=== PATIENT | male | born 1935 | race Caucasian/White ===

== ENCOUNTER 2017-02-15 15:51 | Emergency (ER) | payer OTHER, MEDICARE ==
[2017-02-15] MEDS: Sodium Chloride 0.9% 10 ML Syringe FLUSH PRN ×2 (16:31→16:40)
[2017-02-15] MEDS ORDERED: Aspirin 81 MG Tab.Chew PO ONE (16:33)
[2017-02-15] MEDS ORDERED: Ondansetron 4 MG/2 ML SDV IVPUSH ONE (16:38)
--- NOTE | 2017-02-15 16:38 | EDM.PDOC ---
ED HISTORY OF PRESENT ILLNESS - General Chief Complaint: Chest Pain Stated Complaint: CHEST PAIN DIABETIC Time Seen by Provider: 02/15/17 16:27 Source of Information: Reports: Patient History Limitations: Reports: No limitations - History of Present Illness INITIAL COMMENTS - FREE TEXT/NARRATIVE: Presents for evaluation and treatment of chest pain. Patient reports that the chest pain woke him from sleep last night. She reports associated symptoms of shortness of breath. He denies any current chest pain. Patient reports that he was feeling nauseous and vomited this morning. He was feeling diaphoretic. Patient reports that he took 2 sublingual nitroglycerins prior to arrival in the ER, one this morning and one about two hour prior to arrival in the ER. Again, he is denying current chest pain. Current symptoms include nausea, vomiting, lightheadedness, weakness and dizziness. He states he is having finding his balance. He denies any syncopal episodes. The patient is a diabetic. Patient also reports a past cardiac history of stents and congestive heart failure. He denies any A. fib. Patient resides in [place]. Patient is visiting [place]. He has a daughter at [facility] in [place] who is having triple bypass surgery. - Related Data Allergies/ADRs: Allergies Allergy/AdvReac Type Severity Reaction Status Date / Time No Known Allergies Allergy Verified 02/15/17 16:01 Home Meds: Home Meds Aspirin [Ecotrin] 81 mg PO BID 02/15/17 [History] Calcium Carbonate [Calcium] 500 mg PO DAILY 02/15/17 [History] Glimepiride [Amaryl] 4 mg PO DAILY 02/15/17 [History] Insulin Glarg,Human.Rec.Analog [Lantus] 40 units SQ DAILY 02/15/17 [History] Insulin Lispro [HumaLOG] 14 units SQ DAILY 02/15/17 [History] Latanoprost [Xalatan 0.005% Ophth Soln] 1 drop EYEBOTH BID 02/15/17 [History] Levothyroxine [Synthroid] 50 mcg PO DAILY 02/15/17 [History] Losartan/Hydrochlorothiazide [Losartan-HCTZ 50-12.5 MG] 1 tab PO BID 02/15/17 [ History] Multivitamin [Multi-Day Vitamins] 1 tab PO DAILY 02/15/17 [History] [place]-3 Fatty Acids [Fish Oil] 300 mg PO BID 02/15/17 [History] Simvastatin [Zocor] 40 mg PO DAILY 02/15/17 [History] amLODIPine Besylate [Norvasc] 5 mg PO BID 02/15/17 [History] Past Medical History Cardiovascular History: Reports: Heart Failure, Hypertension, SOB on exertion, Stents Musculoskeletal History: Reports: Arthritis Endocrine/Metabolic History: Reports: Diabetes, type I Social & Family History - Tobacco Use Smoking Status *Q: Former Smoker ED ROS GENERAL - Review of Systems Review Of Systems: See Below Constitutional: Reports: weakness, diaphoresis Respiratory: Reports: Shortness of Breath Cardiovascular: Reports: Chest pain GI/Abdominal: Reports: Nausea, Vomiting (x1 today) Neurological: Denies: Syncope ED EXAM, GENERAL - Physical Exam Exam: See Below Exam Limited By: No limitations General Appearance: alert, WD/WN, no apparent distress, obese Respiratory/Chest: no respiratory distress, lungs clear, normal breath sounds Cardiovascular: normal peripheral pulses, systolic murmur (grade 2 systolic heart murmur), irregularly irregular GI/Abdominal: soft, non tender Neurological: alert, oriented, normal cognition Psychiatric: normal affect, normal mood Skin Exam: Warm, Dry EKG INTERPRETATION EKG Date: 02/15/17 Time: 16:00 Rhythm: a-fib Rate (beats/min): 84 [place]: normal P-wave: variable (1 p wave present) QRS: normal ST-T: normal QT: normal Comparison: NA - no prior EKG EKG Interpretation Comments: A.fib with a rate of 84 No acute ischemic changes. Course - Vital Signs Last Recorded V/S: Last Vital Signs Temp 36.7 C 02/15/17 16:01 Pulse 69 02/15/17 20:00 Resp 18 02/15/17 20:00 BP 102/50 L 02/15/17 20:00 Pulse Ox 91 L 02/15/17 20:00 - Orders/Labs/Meds Orders: Active Orders 24 hr Category Date Time Status Cardiac Monitoring [RC] . DIRECTED Care 02/15/17 16:33 Active EKG 12 Lead [EKG Documentation Completion] [RC] STAT Care 02/15/17 16:24 Active Peripheral IV Care [RC] . DIRECTED Care 02/15/17 16:24 Active Chest 1V Frontal [CR] Stat Exams 03/24/17 16:32 Taken Peripheral IV Insertion Adult [OM.PC] Routine Oth 02/15/17 16:24 Ordered Labs: Laboratory Tests 02/15/17 02/15/17 02/15/17 Range/Units 16:03 16:10 16:10 WBC 11.98 H (4.23-9.07) K/mm3 RBC 5.60 (4.63-6.08) M/mm3 Hgb 16.1 (13.7-17.5) gm/L Hct 47.9 (40.1-51.0) % MCV 85.5 (79.0-92.2) fl MCH 28.8 (25.7-32.2) pg MCHC 33.6 (32.2-35.5) g/dl RDW Std Deviation 39.8 (35.1-43.9) fL Plt Count 209 (163-337) K/mm3 MPV 10.5 (9.4-12.3) fl Neut % (Auto) 88.1 H (34.0-67.9) % Lymph % (Auto) 6.0 L (21.8-53.1) % [place] % (Auto) 5.4 (5.3-12.2) % Eos % (Auto) 0.1 L (0.8-7.0) Baso % (Auto) 0.1 (0.1-1.2) % Neut # (Auto) 10.55 H (1.78-5.38) K/mm3 Lymph # (Auto) 0.72 L (1.32-3.57) K/mm3 [place] # (Auto) 0.65 (0.30-0.82) K/mm3 Eos # (Auto) 0.01 L (0.04-0.54) K/mm3 Baso # (Auto) 0.01 (0.01-0.08) K/mm3 Manual Slide Review Normal smear PT (8.0-13.0) SECONDS INR APTT (22-36) SECONDS D-Dimer, Quantitative (0.19-0.59) mg/L Sodium 136 (136-145) mEq/L Potassium 4.1 (3.5-5.1) mEq/L Chloride 103 (98-107) mEq/L Carbon Dioxide 20 L (21-32) mEq/L Anion Gap 17.1 H (5-15) BUN 51 H (7-18) mg/dL Creatinine 2.2 H (0.7-1.3) mg/dL Est Cr Clr Drug Dosing 22.52 mL/min Estimated GFR (MDRD) 29 (>60) mL/min BUN/Creatinine Ratio 23.2 H (14-18) Glucose 236 H (83-115) mg/dL POC Glucose 223 H (83-110) mg/dL Calcium 8.1 L (8.5-10.1) mg/dL Total Bilirubin 1.6 H (0.2-1.0) mg/dL AST 18 (15-37) U/L ALT 29 (16-63) U/L Alkaline Phosphatase 69 (46-116) U/L CK-MB (CK-2) (0-3.6) ng/ml Troponin I 0.216 H* (0.00-0.056) ng/mL B-Natriuretic Peptide (0-100) pg/mL Total Protein 6.4 (6.4-8.2) g/dl Albumin 2.9 L (3.4-5.0) g/dl Globulin 3.5 gm/dL Albumin/Globulin Ratio 0.8 L (1-2) 02/15/17 02/15/17 02/15/17 Range/Units 16:10 16:10 16:10 WBC (4.23-9.07) K/mm3 RBC (4.63-6.08) M/mm3 Hgb (13.7-17.5) gm/L Hct (40.1-51.0) % MCV (79.0-92.2) fl MCH (25.7-32.2) pg MCHC (32.2-35.5) g/dl RDW Std Deviation (35.1-43.9) fL Plt Count (163-337) K/mm3 MPV (9.4-12.3) fl Neut % (Auto) (34.0-67.9) % Lymph % (Auto) (21.8-53.1) % [place] % (Auto) (5.3-12.2) % Eos % (Auto) (0.8-7.0) Baso % (Auto) (0.1-1.2) % Neut # (Auto) (1.78-5.38) K/mm3 Lymph # (Auto) (1.32-3.57) K/mm3 [place] # (Auto) (0.30-0.82) K/mm3 Eos # (Auto) (0.04-0.54) K/mm3 Baso # (Auto) (0.01-0.08) K/mm3 Manual Slide Review PT 11.6 (8.0-13.0) SECONDS INR 1.06 APTT 26 (22-36) SECONDS D-Dimer, Quantitative 1.80 H (0.19-0.59) mg/L Sodium (136-145) mEq/L Potassium (3.5-5.1) mEq/L Chloride (98-107) mEq/L Carbon Dioxide (21-32) mEq/L Anion Gap (5-15) BUN (7-18) mg/dL Creatinine (0.7-1.3) mg/dL Est Cr Clr Drug Dosing mL/min Estimated GFR (MDRD) (>60) mL/min BUN/Creatinine Ratio (14-18) Glucose (83-115) mg/dL POC Glucose (83-110) mg/dL Calcium (8.5-10.1) mg/dL Total Bilirubin (0.2-1.0) mg/dL AST (15-37) U/L ALT (16-63) U/L Alkaline Phosphatase (46-116) U/L CK-MB (CK-2) 2.0 (0-3.6) ng/ml Troponin I (0.00-0.056) ng/mL B-Natriuretic Peptide (0-100) pg/mL Total Protein (6.4-8.2) g/dl Albumin (3.4-5.0) g/dl Globulin gm/dL Albumin/Globulin Ratio (1-2) 02/15/17 Range/Units 16:10 WBC (4.23-9.07) K/mm3 RBC (4.63-6.08) M/mm3 Hgb (13.7-17.5) gm/L Hct (40.1-51.0) % MCV (79.0-92.2) fl MCH (25.7-32.2) pg MCHC (32.2-35.5) g/dl RDW Std Deviation (35.1-43.9) fL Plt Count (163-337) K/mm3 MPV (9.4-12.3) fl Neut % (Auto) (34.0-67.9) % Lymph % (Auto) (21.8-53.1) % [place] % (Auto) (5.3-12.2) % Eos % (Auto) (0.8-7.0) Baso % (Auto) (0.1-1.2) % Neut # (Auto) (1.78-5.38) K/mm3 Lymph # (Auto) (1.32-3.57) K/mm3 [place] # (Auto) (0.30-0.82) K/mm3 Eos # (Auto) (0.04-0.54) K/mm3 Baso # (Auto) (0.01-0.08) K/mm3 Manual Slide Review PT (8.0-13.0) SECONDS INR APTT (22-36) SECONDS D-Dimer, Quantitative (0.19-0.59) mg/L Sodium (136-145) mEq/L Potassium (3.5-5.1) mEq/L Chloride (98-107) mEq/L Carbon Dioxide (21-32) mEq/L Anion Gap (5-15) BUN (7-18) mg/dL Creatinine (0.7-1.3) mg/dL Est Cr Clr Drug Dosing mL/min Estimated GFR (MDRD) (>60) mL/min BUN/Creatinine Ratio (14-18) Glucose (83-115) mg/dL POC Glucose (83-110) mg/dL Calcium (8.5-10.1) mg/dL Total Bilirubin (0.2-1.0) mg/dL AST (15-37) U/L ALT (16-63) U/L Alkaline Phosphatase (46-116) U/L CK-MB (CK-2) (0-3.6) ng/ml Troponin I (0.00-0.056) ng/mL B-Natriuretic Peptide 954 H (0-100) pg/mL Total Protein (6.4-8.2) g/dl Albumin (3.4-5.0) g/dl Globulin gm/dL Albumin/Globulin Ratio (1-2) Meds: Medications Discontinued Medications Generic Name Dose Route Start Last Admin Trade Name Freq PRN Reason Stop Dose Admin Aspirin 324 mg 02/15/17 16:33 02/15/17 16:40 Aspirin PO 02/15/17 16:34 324 mg ONETIME ONE Administration Heparin Sodium (Porcine) 5,000 units 02/15/17 17:35 02/15/17 17:50 Heparin Sodium IVPUSH 02/15/17 17:36 5,000 units ONETIME ONE Administration Heparin Sodium/Dextrose 25,000 units in 500 mls @ 26.127 mls/hr 02/15/17 17: 45 02/15/17 18:05 Heparin 25,000 Units In D5w 500 Ml IV 20 mls/hr TITRATE VIRGILIO Administration Protocol 12 UNITS/KG/HR Metoprolol Tartrate 2 mg/ 52 mls @ 100 mls/hr 02/15/17 17:35 02/15/17 18:10 Sodium Chloride IV 02/15/17 18:07 Not Given ONETIME ONE Heparin Sodium/Dextrose Confirm 02/15/17 17:56 02/15/17 18:09 Heparin 25,000 Units In D5w 500 Ml Administered 02/15/17 17:57 Not Given Dose 25,000 units in 500 mls @ as directed .ROUTE .STK-MED ONE Metoprolol Tartrate 2 mg 02/15/17 18:10 02/15/17 18:12 Lopressor IVPUSH 02/15/17 18:11 1 mg ONETIME ONE Administration Ondansetron HCl 4 mg 02/15/17 16:38 02/15/17 16:43 Zofran IVPUSH 02/15/17 16:39 4 mg ONETIME ONE Administration Simvastatin 80 mg 02/15/17 17:43 02/15/17 18:22 Zocor PO 02/15/17 17:44 Not Given ONETIME ONE Simvastatin 80 mg 02/15/17 17:58 02/15/17 18:13 Zocor PO 02/15/17 17:59 80 mg STAT STA Administration Sodium Chloride 10 ml 02/15/17 16:24 02/15/17 16:40 Saline Flush FLUSH 10 ml ASDIRECTED PRN Administration Keep Vein Open - Radiology Interpretation Free Text/Narrative:: chest xray reviewed by myself and Dr. Helms shows no acute changes. Possible bilateral haziness - could be body habitus. - Re-Assessments/Exams Free Text/Narrative Re-Assessment/Exam: 02/15/17 18:18 The patient's labs have returned. White blood cell count is elevated at 11.9, hgb is 16.1 plts are 209. Sodium is 136, potassium is 4.1 chloride is 103. Anion gap is 17.1. Glucose is 236. Creatinine is 2.2 Troponin is elevated 0.216. BNP is elevated at 954. CK-MB is within normal limits at 2.0. D-dimer is elevated at 1.8. PT is 11.6 INR is 1.06. PTT is 26. Case discussed with Dr. Jarquin ER physician on with me at this time. Recommended heparin bolus followed by heparin drip per non-STEMI protocol. Recommended Zocor 80 mg. Recommended Lopressor 5 mg IV. Patient has received received a 325 aspirin. Patient is having a nonSTEMI and requires transfer to a high level of care. He asked that we go to [facility]. This is where his daughter is. Discussed the case with one-call at [place]. They do not have any telemetry beds. Spoke with Dr. Hgoan, hospitalist in [place], agrees to accept patient. We'll sent by ground ambulance to [facility] for further care. Will hold lopressor, as patient is to be transferred. Departure - Departure Time of Disposition: 20:34 Disposition: DC/Tfer to Acute Hospital 02 Reason for Transfer *Q: Other Condition: serious Clinical Impression: NSTEMI (non-ST elevated myocardial infarction) Referrals: PCP,Not In Area [Primary Care Provider] - Forms: ED Department Discharge Additional Instructions: Patient will be transported by ground ambulance to [facility]. Dr. Hogan accepting. Patient will be a direct admission. - My Orders Last 24 Hours: My Active Orders 02/15/17 16:24 EKG 12 Lead [EKG Documentation Completion] [RC] STAT Peripheral IV Care [RC] . DIRECTED Peripheral IV Insertion Adult [OM.PC] Routine 02/15/17 16:32 Chest 1V Frontal [CR] Stat 02/15/17 16:33 Cardiac Monitoring [RC] . DIRECTED - Assessment/Plan Last 24 Hours: My Active Orders 02/15/17 16:24 EKG 12 Lead [EKG Documentation Completion] [RC] STAT Peripheral IV Care [RC] . DIRECTED Peripheral IV Insertion Adult [OM.PC] Routine 02/15/17 16:32 Chest 1V Frontal [CR] Stat 02/15/17 16:33 Cardiac Monitoring [RC] . DIRECTED
[2017-02-15] MEDS ORDERED: METOPROLOL TARTRATE IV ONE (17:35)
[2017-02-15] MEDS ORDERED: Heparin Sodium 5,000 Units/ML Vial IVPUSH ONE (17:35)
[2017-02-15] MEDS ORDERED: SODIUM CHLORIDE 0.9% IV ONE (17:35)
[2017-02-15] MEDS ORDERED: Simvastatin 10 MG Tab PO ONE (17:43)
[2017-02-15] MEDS ORDERED: Heparin Sodium/D5W 25,000 UNITS/500 ML BAG IV SCH (17:45)
[2017-02-15] MEDS ORDERED: Heparin Sodium/D5W 25,000 UNITS/500 ML BAG ONE (17:56)
[2017-02-15] MEDS ORDERED: Simvastatin 40 MG Tab PO STA (17:58)
[2017-02-15] MEDS ORDERED: Metoprolol Tartrate 5 MG/5 ML SDV IVPUSH ONE (18:10)
[2017-02-15 20:51] VITALS: BP 102/50
--- NOTE | 2017-02-18 08:34 | CR ---
Chest: Portable view of the chest was obtained. Comparison: No previous study. Heart size at the upper limits of normal. Tortuous thoracic aorta is seen. Pulmonary vessels appear to be slightly congested. Lungs otherwise are clear. Bony structures are grossly intact. Impression: 1. Possible mild pulmonary vascular congestion. Nothing acute otherwise seen on portable chest x-ray. Diagnostic code #3
== END 2017-02-15 19:45 ==
LOC: JD.ED 15:51
DX: I21.4 Non-ST elevation (NSTEMI) myocardial infarction (principal); I50.9 Heart failure, unspecified; E10.9 Type 1 diabetes mellitus without complications; I25.10 Atherosclerotic heart disease of native coronary artery without angina pectoris; I10 Essential (primary) hypertension; Z95.5 Presence of coronary angioplasty implant and graft; Z79.82 Long term (current) use of aspirin; Z79.899 Other long term (current) drug therapy; Z79.4 Long term (current) use of insulin; Z87.891 Personal history of nicotine dependence
CPT/HCPCS: 36415; 71010; 80053; 82553; 82962; 83880; 84484; 85025; 85379; 85610; 85730; 93005; 96365; 96366; 96375; 96376; 99285; A9270; J1644; J2405; J7050; 99284; J3490